=== PATIENT | female | born 1985 | race Caucasian/White ===

== ENCOUNTER 2017-07-14 17:53 | Inpatient (IN) | payer BC ==
[2017-07-14 19:40] VITALS: BMI 22.6
[2017-07-14] MEDS ORDERED: MELATONIN 5 MG TABLETS PO PRN (22:00)
--- NOTE | 2017-07-14 22:04 | HP ---
COWS - Scale Resting Pulse: 1= [place] 81-100 Sweatin= Chills/Flushing Restless Observation: 1= Difficult to Sit Still Pupil Size: 0= Normal to Room Light Bone or Joint Aches: 1= Mild Discomfort Runny Nose/ Eye Tearin= Nasal Congestion GI Upset > 30mins: 0= None Tremor Observation: 1= Tremor [place], Not Seen Yawning Observation: 1= 1-2x During Session Anxiety or Irritability: 2=Irritable/Anxious Goose Flesh Skin: 0=Smooth Skin COWS Score: 9 CIWA Score - CIWA Score Nausea/Vomitin-No Nausea/No Vomiting Muscle Tremors: 2 Anxiety: 3 Agitation: 2 Paroxysmal Sweats: 1-Minimal Palms Moist Orientation: 0-Oriented Tacttile Disturbances: 1-Very Mild Itch/Numbness Auditory Disturbances: 0-None Visual Disturbances: 0-None Headache: 1-Very Mild CIWA-Ar Total Score: 10 Admission ROS BHS - HPI Chief Complaint: " I want to stop using heroin, I want my kids back, 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 PMHX: depression and anxiety. Reports feeling depressed after loosing her daughter to child protective services. Denies suicidal / homicidal ideation. Denies hx of OD , seizures, reports hx of blackouts. Longest period of sobriety 9 months. Exam Limitations: No Limitations - Ebola screening Have you been sick,other than usual withdrawal symptoms: No - Review of Systems Constitutional: Chills, Changes in sleep, Weakness EENT: reports: Nose Congestion Respiratory: reports: No Symptoms reported Cardiac: reports: Lightheadedness GI: reports: Constipated (last BM two days ago), Poor Fluid Intake : reports: No Symptoms Reported Musculoskeletal: reports: Joint Pain Integumentary: reports: No Symptoms Reported Neuro: reports: See HPI, Headache Endocrine: reports: Increased Thirst Hematology: reports: No Symptoms Reported Psychiatric: reports: Orientated x3, Depressed Other Systems: Reviewed and Negative Patient History - Patient Medical History Hx Anemia: No Hx Asthma: No Hx Chronic Obstructive Pulmonary Disease (COPD): No Hx Cancer: No Hx Cardiac Disorders: No Hx Congestive Heart Failure: No Hx Hypertension: No Hx Hypercholesterolemia: No Hx Pacemaker: No HX Cerebrovascular Accident: No Hx Seizures: No Hx Dementia: No Hx Diabetes: No Hx Gastrointestinal Disorders: No Hx Liver Disease: No Hx Genitourinary Disorders: No Hx Sexually Transmitted Disorders: No Hx Renal Disease (ESRD): No Hx Thyroid Disease: Yes (kidney stones ) Hx Human Immunodeficiency Virus (HIV): No Hx Hepatitis C: No Hx Depression: Yes Hx Suicide Attempt: No Hx Bipolar Disorder: No Hx Schizophrenia: No - Patient Surgical History Past Surgical History: No - PPD History Previous Implant?: No Documented Results: Negative w/o proof PPD to be Administered?: Yes - Reproductive History Patient is a Female of Child Bearing Age (11 -55 yrs old): Yes Last Menstrual Period: 06/20/17 Patient : No - Smoking Cessation Smoking history: Current every day smoker Have you smoked in the past 12 months: Yes Aproximately how many cigarettes per day: 20 Hx Chewing Tobacco Use: No Initiated information on smoking cessation: Yes 'Breaking Loose' booklet given: 07/14/17 - Substance & Tx. History Hx Alcohol Use: Yes Hx Substance Use: Yes Substance Use Type: Alcohol, Cocaine, Heroin Hx Substance Use Treatment: No - Substances Abused Alcohol Route: Oral Frequency: Daily Amount used: 6 beers x 12 oz Age of first use: 13 Date of Last Use: 07/14/17 Cocaine Route: Inhalation Frequency: Daily Amount used: $40 Age of first use: 16 Date of Last Use: 07/14/17 Heroin Route: Inhalation Frequency: Daily Amount used: $200, (20 bags) Age of first use: 31 Date of Last Use: 07/14/17 Marijuana/Hashish Route: Smoking Frequency: 1-3 times last 30 days Amount used: 1/2 joint Age of first use: 32 Date of Last Use: 07/11/17 (ocasional use ) Family Disease History - Family Disease History Family Disease History: Other: Father (alive and well), Mother (alive and well ) Admission Physical Exam BHS - Vital Signs Vital Signs: Vital Signs - 24 hr 07/14/17 19:32 Temperature 98.7 F Pulse Rate 83 Respiratory 18 Rate Blood Pressure 137/85 - Physical General Appearance: Yes: Appropriately Dressed, Thin, Anxious HEENTM: Yes: EOMI, Hearing grossly Normal, Normal ENT Inspection, Normocephalic , Normal Voice, AMBER, Pharynx Normal, Tm's normal Respiratory: Yes: Chest Non-Tender, Lungs Clear, Normal Breath Sounds, No Respiratory Distress, No Accessory Muscle Use Neck: Yes: Within Normal Limits Breast: Yes: Breast Exam Deferred Cardiology: Yes: Regular Rhythm, Regular Rate Abdominal: Yes: Normal Bowel Sounds, Non Tender, Flat, Soft Genitourinary: Yes: Within Normal Limits Back: Yes: Normal Inspection Musculoskeletal: Yes: full range of Motion, Gait Steady, Pelvis Stable Extremities: Yes: Normal Capillary Refill, Normal Inspection, Normal Range of Motion, Non-Tender Neurological: Yes: director internal communications II-XII NML intact, Fully Oriented, Alert, Motor Strength 5/5, Depressed Affect Integumentary: Yes: Normal Color, Warm, Moist Lymphatic: Yes: Within Normal Limits - Diagnostic (1) Cocaine dependence Current Visit: Yes Status: Acute (2) Opioid dependence with withdrawal Current Visit: Yes Status: Acute (3) Alcohol dependence with withdrawal Current Visit: Yes Status: Acute Qualifiers: Complication of substance-induced condition: uncomplicated Qualified Code(s ): F10.230 - Alcohol dependence with withdrawal, uncomplicated (4) Depressed mood Current Visit: Yes Status: Acute Cleared for Admission [facility] - Detox or Rehab [facility] Level of Care: Medically Supervised Detox Regimen/Protocol: Methadone/Librium [facility] Breath Alcohol Content Breath Alcohol Content: 0 Urine Pregancy Test - Result Urine Test Results: Negative- NO Line Present Urine Drug Screen - Results Drug Screen Negative: No Urine Drug Screen Results: CHARLA-Cocaine, OPI-Opiates
[2017-07-14] MEDS ORDERED: chlordiazePOXIDE HCL 25 MG CAPSULE PO ONE (22:25)
[2017-07-14] MEDS ORDERED: LOPERAMIDE HCL 2 MG CAPSULE PO PRN (22:25)
[2017-07-14] MEDS ORDERED: MAG HYDROX/AL HYDROX/SIMETH 30 ML UNIT-DOSE CUP PO PRN (22:25)
[2017-07-14] MEDS ORDERED: MAGNESIUM CITRATE 300 ML BOTTLE PO PRN (22:25)
[2017-07-14] MEDS ORDERED: hydrOXYzine PAMOATE 25 MG CAPSULE (FP) PO PRN (22:25)
[2017-07-14] MEDS ORDERED: P-EPHED 60MG/TRIPROLIDI 2.5MG TABLET PO PRN (22:25)
[2017-07-14] MEDS ORDERED: IBUPROFEN 400 MG TABLET (FP) PO PRN (22:25)
[2017-07-14] MEDS ORDERED: chlordiazePOXIDE HCL 25 MG CAPSULE PO PRN (22:25)
[2017-07-14] MEDS ORDERED: guaiFENesin/D-METHORPHAN HB 10 ML UNIT-DOSE CUPS PO PRN (22:25)
[2017-07-14] MEDS ORDERED: MAGNESIUM HYDROX 2400MG/30ML ORAL SUSPENSION 30 ML CUP PO PRN (22:25)
[2017-07-14] MEDS ORDERED: METHADONE HCL 10 MG TABLET (FOR DETOX USE ONLY) PO ONE ×2 (22:25→23:00)
[2017-07-14] MEDS ORDERED: ACETAMINOPHEN 325 MG TABLET (FP) PO PRN (22:25)
[2017-07-14] MEDS ORDERED: MENTHOL/PHENOL 1 EACH UD MM PRN (22:25)
[2017-07-14] MEDS: chlordiazePOXIDE HCL 25 MG CAPSULE PO SCH (23:54)
[2017-07-15 02:25] LABS: URINE APPEARANCE CLEAR; URINE BILIRUBIN NEGATIVE (<2.0 mg/dL); URINE BLOOD NEGATIVE (NEGATIVE); URINE COLOR LTYELLOW; URINE GLUCOSE (UA) NEGATIVE (NEGATIVE); URINE KETONE NEGATIVE (NEGATIVE); URINE LEUK ESTERASE NEGATIVE (NEGATIVE); URINE NITRITE NEGATIVE (NEGATIVE); URINE PROTEIN NEGATIVE (NEGATIVE); URINE UROBILINOGEN NEGATIVE mg/dL (0.2-1.0)
[2017-07-15] MEDS: chlordiazePOXIDE HCL 25 MG CAPSULE PO SCH ×4 (05:36→22:05)
[2017-07-15] MEDS ORDERED: METHADONE HCL 10 MG TABLET (FOR DETOX USE ONLY) PO SCH (10:00)
[2017-07-15 10:24] LABS: HEMATOCRIT 39.6 % (32.4-45.2); HEMOGLOBIN 13.5 GM/dL (10.7-15.3); MCH 30.8 pg (25.7-33.7); MEAN CELL VOLUME 90.5 fl (80-96); MEAN PLT VOLUME 9.2 fl (7.5-11.1); PLATELET COUNT 279 K/MM3 (134-434); RBC 4.38 M/mm3 (3.60-5.2); RDW 13.2 % (11.6-15.6); WHITE BLOOD COUNT 9.4 K/mm3 (4.0-10.0)
[2017-07-15] MEDS: PRENATAL VITAMINS W/ FOLIC ACID TABLET (FP) PO SCH (10:35)
--- NOTE | 2017-07-15 11:15 | PN ---
[facility] CIWA - CIWA Score Nausea/Vomitin-No Nausea/No Vomiting Muscle Tremors: 3 Anxiety: 2 Agitation: 2 Paroxysmal Sweats: No Perspiration Orientation: 0-Oriented Tacttile Disturbances: 1-Very Mild Itch/Numbness Auditory Disturbances: 0-None Visual Disturbances: 0-None Headache: 1-Very Mild CIWA-Ar Total Score: 9 BHS COWS - Scale Resting Pulse: 0= [place] 80 or Below Sweatin= Chills/Flushing Restless Observation: 1= Difficult to Sit Still Pupil Size: 0= Normal to Room Light Bone or Joint Aches: 1= Mild Discomfort Runny Nose/ Eye Tearin= Nasal Congestion GI Upset > 30mins: 1= Stomach Cramp Tremor Observation of Outstretched Hands: 1= Tremor [place], Not Seen Yawning Observation: 1= 1-2x During Session Anxiety or Irritability: 2=Irritable/Anxious Goose Flesh Skin: 0=Smooth Skin COWS Score: 9 [facility] Progress Note (SOAP) Subjective: joint pain body ache restlessness anxiety irritable sweat tremor Objective: 07/15/17 11:26 Vital Signs Temperature 98.6 F 07/15/17 09:15 Pulse Rate 74 07/15/17 09:15 Respiratory Rate 18 07/15/17 09:15 Blood Pressure 121/85 07/15/17 09:15 O2 Sat by Pulse Oximetry (%) Laboratory Last Values WBC 9.4 K/mm3 (4.0-10.0) 07/15/17 07:30 RBC 4.38 M/mm3 (3.60-5.2) 07/15/17 07:30 Hgb 13.5 GM/dL (10.7-15.3) 07/15/17 07:30 Hct 39.6 % (32.4-45.2) 07/15/17 07:30 MCV 90.5 fl (80-96) 07/15/17 07:30 MCH 30.8 pg (25.7-33.7) 07/15/17 07:30 MCHC 34.0 g/dl (32.0-36.0) 07/15/17 07:30 RDW 13.2 % (11.6-15.6) 07/15/17 07:30 Plt Count 279 K/MM3 (134-434) 07/15/17 07:30 MPV 9.2 fl (7.5-11.1) 07/15/17 07:30 Urine Color Ltyellow 07/14/17 Unknown Urine Appearance Clear 07/14/17 Unknown Urine pH 6.0 (5.0-8.0) 07/14/17 Unknown Ur Specific [place] 1.006 (1.001-1.035) 07/14/17 Unknown Urine Protein Negative (NEGATIVE) 07/14/17 Unknown Urine Glucose (UA) Negative (NEGATIVE) 07/14/17 Unknown Urine Ketones Negative (NEGATIVE) 07/14/17 Unknown Urine Blood Negative (NEGATIVE) 07/14/17 Unknown Urine Nitrite Negative (NEGATIVE) 07/14/17 Unknown Urine Bilirubin Negative (<2.0 mg/dL) 07/14/17 Unknown Urine Urobilinogen Negative mg/dL (0.2-1.0) 07/14/17 Unknown Ur Leukocyte Esterase Negative (NEGATIVE) 07/14/17 Unknown lab noted Assessment: 07/15/17 11:26 withdrawal sx Plan: continue detox
[2017-07-15 11:47] LABS: CHLORIDE 106 mmol/L (98-107); POTASSIUM 3.8 mmol/L (3.5-5.1); SODIUM 140 mmol/L (136-145)
[2017-07-15 12:08] LABS: ALBUMIN 3.4 g/dl (3.4-5.0); ALK PHOS 66 U/L (45-117); ANION GAP 6 (8-16); BILIRUBIN,TOTAL 0.5 mg/dL (0.2-1.0); BLOOD UREA NITROGEN 12 mg/dL (7-18); CALCIUM 8.7 mg/dL (8.5-10.1); CO2 28 mmol/L (21-32); CREATININE 0.8 mg/dL (0.55-1.02); GLUCOSE,RANDOM 88 mg/dL (74-106); SGOT/AST 12 U/L (15-37); SGPT/ALT 15 U/L (12-78); TOT PROT 6.6 g/dl (6.4-8.2)
--- NOTE | 2017-07-15 13:30 | EKG ---
Test Reason : Blood Pressure : / mmHG Vent. Rate : 067 BPM Atrial Rate : 067 BPM P-R Int : 214 ms QRS Dur : 088 ms QT Int : 398 ms P-R-T Axes : 049 011 -20 degrees QTc Int : 420 ms SINUS RHYTHM WITH 1ST DEGREE A-V BLOCK T WAVE ABNORMALITY, CONSIDER ANTERIOR ISCHEMIA ABNORMAL ECG NO PREVIOUS ECGS AVAILABLE Confirmed by MD GIOVANY, DEMETRIUS ([id number]) on 07/15/2017 1:29:42 PM Referred By: Confirmed By:DEMETRIUS ADAIR MD
--- NOTE | 2017-07-15 14:12 | CONSULT ---
[facility] Psychiatric Consult - Data Date of interview: 07/15/17 Admission source: [facility] Identifying data: Patient is a 32 year old single female, mother of four, unemployed, and currently living with uncle. This is patient's first admission to detox at [facility]. Pt. admitted to for alcohol, cocaine, and opiate dependence. Substance Abuse History: Smoking Cessation. Smoking history: Current every day smoker. Have you smoked in the past 12 months: Yes. Aproximately how many cigarettes per day: 20. Hx Chewing Tobacco Use: No. Initiated information on smoking cessation: Yes. 'Breaking Loose' booklet given: 07/14/17. - Substance & Tx. History. Hx Alcohol Use: Yes. Hx Substance Use: Yes. Substance Use Type : Alcohol, Cocaine, Heroin. Hx Substance Use Treatment: No. - Substances Abused. Alcohol. Route: Oral. Frequency: Daily. Amount used: 6 beers x 12 oz. Age of first use: 13. Date of Last Use: 07/14/17. Cocaine. Route: Inhalation. Frequency: Daily. Amount used: $40. Age of first use: 16. Date of Last Use: 07/14/17. Heroin. Route: Inhalation. Frequency: Daily. Amount used: $200, (20 bags). Age of first use: 31. Date of Last Use: . Marijuana/Hashish. Route: Smoking. Frequency: 1-3 times last 30 days. Amount used: 1/2 joint. Age of first use: 32. Date of Last Use: 07/11/17 ( ocasional use ) Medical History: Kidney stones Psychiatric History: Patient denies h/o psychiatric hospitalization, outpatient care, and suicide attempt. Physical/Sexual Abuse/Trauma History: Denies. Mental Status Exam - Mental Status Exam Alert and Oriented to: Time, Place, Person Cognitive Function: Good Patient Appearance: Well Groomed Mood: Withdrawn, Euthymic Affect: Mood Congruent Patient Behavior: Cooperative Speech Pattern: Appropriate Voice Loudness: Moderately Soft/Quiet Thought Process: Goal Oriented Thought Disorder: Not Present Hallucinations: Denies Suicidal Ideation: Denies Homicidal Ideation: Denies Insight/Judgement: Poor Sleep: Well Appetite: Good Muscle strength/Tone: Normal Gait/Station: Normal Psychiatric Findings - Problem List ([place] 1, 2,3) (1) Substance induced mood disorder Current Visit: Yes Status: Acute (2) Alcohol dependence with withdrawal Current Visit: Yes Status: Acute Qualifiers: Complication of substance-induced condition: uncomplicated Qualified Code(s ): F10.230 - Alcohol dependence with withdrawal, uncomplicated (3) Cocaine dependence Current Visit: Yes Status: Acute (4) Opioid dependence with withdrawal Current Visit: Yes Status: Acute - Initial Treatment Plan Initial Treatment Plan: Psychoeducation provided. Detoxification in progress. Observation.
--- NOTE | 2017-07-15 17:59 | EKG ---
Test Reason : Blood Pressure : / mmHG Vent. Rate : 067 BPM Atrial Rate : 067 BPM P-R Int : 220 ms QRS Dur : 090 ms QT Int : 398 ms P-R-T Axes : 031 024 -30 degrees QTc Int : 420 ms SINUS RHYTHM WITH 1ST DEGREE A-V BLOCK T WAVE ABNORMALITY, CONSIDER INFERIOR ISCHEMIA T WAVE ABNORMALITY, CONSIDER ANTERIOR ISCHEMIA ABNORMAL ECG Confirmed by MD LIBAN, SEBAS ([id number]) on 07/15/2017 5:59:17 PM Referred By: Confirmed By:SEBAS LOUIE MD
[2017-07-15] MEDS ORDERED: THIAMINE HCL 100 MG TABLET (FP) PO SCH (22:00)
[2017-07-15] MEDS ORDERED: cloNIDine HCL 0.1 MG TABLET PO ONE (22:34)
[2017-07-15] MEDS ORDERED: hydrOXYzine PAMOATE 25 MG CAPSULE (FP) PO PRN (23:25)
[2017-07-15] MEDS: CYCLOBENZAPRINE HCL 5 MG TABLET PO SCH (23:29)
[2017-07-16] MEDS: CYCLOBENZAPRINE HCL 5 MG TABLET PO SCH ×2 (05:32→13:32)
[2017-07-16] MEDS: chlordiazePOXIDE HCL 25 MG CAPSULE PO SCH ×3 (05:32→18:51)
[2017-07-16] MEDS ORDERED: METHADONE HCL 5 MG TABLET (FOR DETOX USE ONLY) PO SCH (10:00)
[2017-07-16] MEDS: PRENATAL VITAMINS W/ FOLIC ACID TABLET (FP) PO SCH (10:07)
--- NOTE | 2017-07-16 10:51 | PN ---
[facility] CIWA - CIWA Score Nausea/Vomitin-No Nausea/No Vomiting Muscle Tremors: 3 Anxiety: 2 Agitation: 2 Paroxysmal Sweats: 1-Minimal Palms Moist Orientation: 0-Oriented Tacttile Disturbances: 0-None Auditory Disturbances: 0-None Visual Disturbances: 0-None Headache: 0-None Present CIWA-Ar Total Score: 8 BHS COWS - Scale Resting Pulse: 0= [place] 80 or Below Sweatin= Chills/Flushing Restless Observation: 1= Difficult to Sit Still Pupil Size: 0= Normal to Room Light Bone or Joint Aches: 1= Mild Discomfort Runny Nose/ Eye Tearin= Nasal Congestion GI Upset > 30mins: 1= Stomach Cramp Tremor Observation of Outstretched Hands: 1= Tremor [place], Not Seen Yawning Observation: 1= 1-2x During Session Anxiety or Irritability: 1=Feels Anxious/Irritable Goose Flesh Skin: 0=Smooth Skin COWS Score: 8 [facility] Progress Note (SOAP) Subjective: joint pain body ache low energy mild sweat tremor Objective: 07/16/17 10:48 Vital Signs Temperature 98.2 F 07/16/17 06:30 Pulse Rate 71 07/16/17 06:30 Respiratory Rate 18 07/16/17 06:30 Blood Pressure 138/70 07/16/17 06:30 O2 Sat by Pulse Oximetry (%) Laboratory Last Values WBC 9.4 K/mm3 (4.0-10.0) 07/15/17 07:30 RBC 4.38 M/mm3 (3.60-5.2) 07/15/17 07:30 Hgb 13.5 GM/dL (10.7-15.3) 07/15/17 07:30 Hct 39.6 % (32.4-45.2) 07/15/17 07:30 MCV 90.5 fl (80-96) 07/15/17 07:30 MCH 30.8 pg (25.7-33.7) 07/15/17 07:30 MCHC 34.0 g/dl (32.0-36.0) 07/15/17 07:30 RDW 13.2 % (11.6-15.6) 07/15/17 07:30 Plt Count 279 K/MM3 (134-434) 07/15/17 07:30 MPV 9.2 fl (7.5-11.1) 07/15/17 07:30 Sodium 140 mmol/L (136-145) 07/15/17 07:30 Potassium 3.8 mmol/L (3.5-5.1) 07/15/17 07:30 Chloride 106 mmol/L (98-107) 07/15/17 07:30 Carbon Dioxide 28 mmol/L (21-32) 07/15/17 07:30 Anion Gap 6 (8-16) L 07/15/17 07:30 BUN 12 mg/dL (7-18) 07/15/17 07:30 Creatinine 0.8 mg/dL (0.55-1.02) 07/15/17 07:30 Creat Clearance w eGFR > 60 (>60) 07/15/17 07:30 Random Glucose 88 mg/dL (74-106) 07/15/17 07:30 Calcium 8.7 mg/dL (8.5-10.1) 07/15/17 07:30 Total Bilirubin 0.5 mg/dL (0.2-1.0) 07/15/17 07:30 AST 12 U/L (15-37) L 07/15/17 07:30 ALT 15 U/L (12-78) 07/15/17 07:30 Alkaline Phosphatase 66 U/L (45-117) 07/15/17 07:30 Total Protein 6.6 g/dl (6.4-8.2) 07/15/17 07:30 Albumin 3.4 g/dl (3.4-5.0) 07/15/17 07:30 Urine Color Ltyellow 07/14/17 Unknown Urine Appearance Clear 07/14/17 Unknown Urine pH 6.0 (5.0-8.0) 07/14/17 Unknown Ur Specific [place] 1.006 (1.001-1.035) 07/14/17 Unknown Urine Protein Negative (NEGATIVE) 07/14/17 Unknown Urine Glucose (UA) Negative (NEGATIVE) 07/14/17 Unknown Urine Ketones Negative (NEGATIVE) 07/14/17 Unknown Urine Blood Negative (NEGATIVE) 07/14/17 Unknown Urine Nitrite Negative (NEGATIVE) 07/14/17 Unknown Urine Bilirubin Negative (<2.0 mg/dL) 07/14/17 Unknown Urine Urobilinogen Negative mg/dL (0.2-1.0) 07/14/17 Unknown Ur Leukocyte Esterase Negative (NEGATIVE) 07/14/17 Unknown lab noted Assessment: 07/16/17 10:49 withdrawal sx Plan: continue detox discuss aftercare talking about addiction related social and health issues
[2017-07-16 17:57] VITALS: BP 123/74; PULSE 72; TEMP 97.7
[2017-07-16] MEDS ORDERED: chlordiazePOXIDE 5 MG CAPSULE PO SCH (23:00)
[2017-07-17] MEDS ORDERED: chlordiazePOXIDE HCL 10 MG CAPSULE PO SCH (23:00)
[2017-07-18] MEDS ORDERED: METHADONE HCL 10 MG TABLET (FOR DETOX USE ONLY) PO SCH (10:00)
[2017-07-19] MEDS ORDERED: METHADONE HCL 5 MG TABLET (FOR DETOX USE ONLY) PO SCH (06:00)
== END 2017-07-16 19:00 | disposition left against medical advice (07) | DRG 770 ==
LOC: YASAS 17:53 → Y6N 21:27
PROVIDERS: ADMIT Surgery; ATTEND Surgery
PROC: HZ2ZZZZ Detoxification Services for Substance Abuse Treatment (ICD-10-PCS; principal; 2017-07-14)
DX: F11.23 Opioid dependence with withdrawal (principal); F10.230 Alcohol dependence with withdrawal, uncomplicated; F14.20 Cocaine dependence, uncomplicated; F19.24 Other psychoactive substance dependence with psychoactive substance-induced mood disorder; F32.9 Major depressive disorder, single episode, unspecified
CPT/HCPCS: 36415; 80053; 81003; 85027; 86593; 93005; 93010; J0735